=== PATIENT | female | born 1995 ===

== ENCOUNTER 2019-01-02 11:55 | Emergency (ER) | payer MEDICAID, OTHER ==
[2019-01-02 11:57] VITALS: BMI 16.2
[2019-01-02 11:59] VITALS: TEMP 98.4
--- NOTE | 2019-01-02 12:28 | ED PDOC ---
Arrival/HPI - General Chief Complaint: Trauma Time Seen by Provider: 01/02/19 12:04 Historian: Patient, Interior Design Coordinator - History of Present Illness Narrative History of Present Illness (Text): 01/02/19 12:25 23 F, , with no significant pmh presents with complains of lower back and abdominal pain s/p fall at work yesterday. Patient reports she is 12 weeks . Patient denies any head trauma or bleeding. Patient mentions not seeing any medical attention due to not having any health insurance. Patient denies any fevers, chills, headache, dizziness, chest pain, shortness of breath, dyspnea on exertion, cough, diaphoresis, nausea, vomiting, diarrhea, neck pain, or any other complaint. Time/Duration: 24 hours Symptom Onset: Sudden Symptom Course: Unchanged Activities at Onset: Light Context: Work Past Medical History - Provider Review Nursing Documentation Reviewed: Yes - Infectious Disease Hx of Infectious Diseases: None - Psychiatric Hx Substance Use: No Family/Social History - Physician Review Nursing Documentation Reviewed: Yes Family/Social History: Unknown Family HX Smoking Status: Never Smoked Hx Alcohol Use: No Hx Substance Use: No Allergies/Home Meds Allergies/Adverse Reactions: Allergies No Known Allergies Allergy (Verified 01/02/19 11:57) Review of Systems - Physician Review All systems were reviewed & negative as marked: Yes - Review of Systems Constitutional: Normal Eyes: Normal ENT: Normal Respiratory: Normal Cardiovascular: Normal Gastrointestinal: Abdominal Pain Genitourinary Female: Normal Musculoskeletal: Back Pain Skin: Normal Neurological: Normal Endocrine: Normal Hemo/Lymphatic: Normal Psychiatric: Normal Physical Exam Vital Signs Reviewed: Yes Vital Signs Temp Pulse Resp BP Pulse Ox 01/02/19 11:57 98.4 F 91 H 19 108/69 100 Temperature: Afebrile Blood Pressure: Normal Pulse: Regular Respiratory Rate: Normal Appearance: Positive for: Well-Appearing, Non-Toxic, Comfortable Pain Distress: Mild Mental Status: Positive for: Alert and Oriented X 3 - Systems Exam Head: Present: Atraumatic, Normocephalic Pupils: Present: PERRL Extroacular Muscles: Present: EOMI Conjunctiva: Present: Normal Mouth: Present: Moist Mucous Membranes Neck: Present: Normal Range of Motion Respiratory/Chest: Present: Clear to Auscultation, Good Air Exchange. No: Resp iratory Distress, Accessory Muscle Use Cardiovascular: Present: Regular Rate and Rhythm, Normal S1, S2. No: Murmurs Abdomen: No: Tenderness, Distention, Peritoneal Signs Back: Present: Other (mild paralumbar tenderness) Upper Extremity: Present: Normal Inspection. No: Cyanosis, Edema Lower Extremity: Present: Normal Inspection. No: Edema Neurological: Present: GCS=15, CN II-XII Intact, Speech Normal Skin: Present: Warm, Dry, Normal Color. No: Rashes Psychiatric: Present: Alert, Oriented x 3, Normal Insight, Normal Concentration Medical Decision Making ED Course and Treatment: 01/02/19 12:27 Impression: 23 F, , presents with complains of lower back and abdominal pain s/p fall at work yesterday Plan: -- Labs -- Tylenol -- UA -- Transvaginal US -- Reassess and disposition Prior Visits: Notes and results from previous visits were reviewed. Progress Notes: 01/02/19 16:31 minima tenderness. vitals stable h/h stable. pain resolved. pt i nad. doubt intraabodminal bleeding. us iup confirmed. no bleedin gin er. 01/02/19 16:32 rh(+). urine treated. advise outpt fu return precautions. no midline tenderness. pt declines imaging to eval ls fracture. - RAD Interpretation Radiology Orders: 01/02/19 12:22 TRANSVAGINAL [US] Stat - Medication Orders Current Medication Orders: Acetaminophen (Tylenol 325mg Tab) 975 mg PO STAT STA Stop: 01/02/19 12:23 - Scribe Statement The provider has reviewed the documentation as recorded by the Madison Fletcher All medical record entries made by the JoseM [email or web address] were at my direction and personally dictated by me. I have reviewed the chart and agree that the record accurately reflects my personal performance of the history, physical exam, medical decision making, and the department course for this patient. I have also personally directed, reviewed, and agree with the discharge instructions and disposition. Disposition/Present on Arrival - Present on Arrival Any Indicators Present on Arrival: No History of DVT/PE: No History of Uncontrolled Diabetes: No Urinary Catheter: No History of Decub. Ulcer: No History Surgical Site Infection Following: None - Disposition Have Diagnosis and Disposition been Completed?: Yes Diagnosis: Fall, Threatened miscarriage, UTI (urinary tract infection) Disposition: HOME/ ROUTINE Disposition Time: 15:00 Condition: STABLE Discharge Instructions (ExitCare): Urinary Tract Infections in Adults, Threatened Miscarriage (DC), Preventing Falls Print Language: MAORI Additional Instructions: follow up with specialist. return to any er with worsening symptoms or concerns. Prescriptions: Cefpodoxime [Vantin] 100 mg PO BID #14 tab Referrals: FAMILY PROVIDER,NO [Primary Care Provider] - Follow up with primary Forms: [employer] ([place])
[2019-01-02 13:35] VITALS: BP 110/65; O2SAT 99
[2019-01-02 13:39] LABS: PH,URINE 7.5 (4.7-8.0); URINE BILIRUBIN NEGATIVE (NEGATIVE); URINE BLOOD NEGATIVE (NEGATIVE); URINE GLUCOSE (UA) NEGATIVE (NEGATIVE); URINE LEUKOCYTE ESTERASE NEGATIVE Leu/uL (NEGATIVE); URINE PROTEIN NEGATIVE mg/dL (<30 mg/dL); URINE UROBILINOGEN 0.2 E.U./dL (<1 E.U./dL)
[2019-01-02 13:40] LABS: URINE APPEARANCE CLEAR (CLEAR); URINE COLOR YELLOW (YELLOW)
[2019-01-02 13:41] LABS: HCG,QUALITATIVE URINE POSITIVE (NEGATIVE)
[2019-01-02 13:44] LABS: URINE BACTERIA LARGE /hpf; URINE RBC 0 - 2 /hpf (0-2)
[2019-01-02 13:50] LABS: BASO # 0.02 K/mm3 (0.0-2.0); BASO % 0.2 % (0.0-3.0); EOS # 0.1 (0.0-0.7); EOS % 0.6 % (1.5-5.0); LYMPH # 1.9 (1.2-3.4); LYMPH % 17.2 % (22.0-35.0); MEAN CELL VOLUME 94.8 fl (80.0-105.0); MEAN CORPUSCULAR HEMOGLOBIN 31.4 pg (25.0-35.0); MEAN CORPUSCULAR HGB CONC 33.1 g/dl (31.0-37.0); MEAN PLATELET VOLUME 11.9 fl (7.0-11.0); MONO # 0.4 (0.1-0.6); MONO % 3.6 % (1.0-6.0); RBC 3.82 10^6/uL (3.5-6.1); RED CELL DISTRIBUTION WIDTH 14.8 % (11.5-14.5); WHITE BLOOD COUNT 10.9 10^3/uL (4.5-11.0)
[2019-01-02 13:59] LABS: ALB/GLOB RATIO 1.1 (1.1-1.8); ALBUMIN 3.5 g/dL (3.0-4.8); ALT/SGPT 18 U/L (7-56); AST/SGOT 20 U/L (14-36); BLOOD UREA NITROGEN 8 mg/dL (7-21); CALCIUM 9.3 mg/dL (8.4-10.5); GFR NON-AFRICAN AMERICAN > 60
--- NOTE | 2019-01-02 14:47 | US ---
Date of service: 01/02/2019 PROCEDURE: OB Pelvic Ultrasound HISTORY: Abd pain/fall/preg COMPARISON: None available. FINDINGS: UTERUS: Single Live intrauterine fetus in breech presentation. BPD: 3.7 cm corresponding to 17 weeks and 2 days of gestational age. HC: 13.6 cm corresponding to 17 weeks and 0 day. AC: 10.41 cm corresponding to 16 weeks and 3 days of gestational age. FL: 2.08 cm corresponding to 16 weeks and 1 day of gestational age. CRL equivalent to wks/days gestatioin age (Ultrasound estimated): 16 weeks and 5 days Date of delivery (Ultrasound estimated) : 06/14/2019 Heart rate: 142 bpm. Maame-gestational hemorrhage: None. Placenta is anterior. CERVIX: Long and closed. No cervical abnormality seen. RIGHT OVARY: Measures 4.0 x 2.0 x 3.3 cm. No mass. Normal flow. LEFT OVARY: Measures 3.6 x 2.4 x 3.1 cm. No mass. Normal flow. FREE FLUID: None. OTHER FINDINGS: None. IMPRESSION: Single live intrauterine fetus in breech presentation with mean gestational age of 16 weeks and 5 days. The estimated date of delivery by ultrasound is 06/14/2019. The ultrasound dates correspond with the clinical dates. Please note this is the limited OB ultrasound performed on an emergent basis. Dedicated anatomic survey is advised.
[2019-01-02 15:18] VITALS: PULSE 78; RESP 19
== END 2019-01-02 15:17 | disposition home or self-care (01) ==
LOC: ED 11:55
DX: O20.0 Threatened abortion (principal); O23.42 Unspecified infection of urinary tract in pregnancy, second trimester; Z3A.16 16 weeks gestation of pregnancy